=== PATIENT | female | born 1950 | race Caucasian/White ===

== ENCOUNTER 2020-12-26 07:46 | Outpatient (CLI) | payer MEDICARE, OTHER ==
[~2020-12-26] VITALS: Ht 172.7 cm; Wt 81.8 kg
[2020-12-26] MEDS ORDERED: nitroGLYCERIN 0.4mg SUBLingual tab SL PRN (08:50)
[2020-12-26] MEDS ORDERED: regadenoson 0.4mg/5ml syringe IV ONE (08:50)
[2020-12-26] MEDS ORDERED: normal saline 500ml IV soln 500 ML IV ONE (08:50)
[2020-12-26] MEDS ORDERED: aminophylline 250mg/10ml inj. IV PRN (08:50)
[2020-12-26 09:35] VITALS: BP 125/43
[2020-12-26 09:48] VITALS: BP 134/44
[2020-12-26 09:49] VITALS: BP 123/46
[2020-12-26 09:50] VITALS: BP 104/80
[2020-12-26 09:51] VITALS: BP 139/62
[2020-12-26 09:52] VITALS: BP 117/46
== END 2020-12-26 23:59 | disposition home or self-care (01) ==
LOC: RAD 07:46
PROVIDERS: ATTEND Internal Medicine Cardiovascular Disease
DX: Z01.810 Encounter for preprocedural cardiovascular examination (principal); R94.31 Abnormal electrocardiogram [ECG] [EKG]
CPT/HCPCS: 78452; 93017; A9500; J2785; J7040

== ENCOUNTER 2021-06-06 05:20 | Inpatient (IN) | payer MEDICARE, OTHER ==
[2021-05-31 15:04] LABS: BASOPHILS % (AUTO) 0.7 % (0-1); EOSINOPHILS # (AUTO) 0.2 X10'3 (0-0.9); EOSINOPHILS % (AUTO) 3.2 % (0-6); LYMPHOCYTES # (AUTO) 1.6 X10'3 (1.1-4.8); LYMPHOCYTES % (AUTO) 26.6 % (21-51); MEAN CORPUSCULAR HEMOGLOBIN 28.3 PG (27.0-31.0); MEAN CORPUSCULAR HGB CONC 32.7 g/dL (33.0-36.5); MEAN CORPUSCULAR VOLUME 86.6 FL (78-98); MEAN PLATELET VOLUME 8.1 FL (7.4-10.4); MONOCYTES # (AUTO) 0.4 X10'3 (0-0.9); MONOCYTES % (AUTO) 7.4 % (2-12); NEUTROPHILS # (AUTO) 3.7 X10'3 (1.8-7.7); NEUTROPHILS % (AUTO) 62.1 % (42-75); PRE OP HEMATOCRIT 42.1 % (35.0-45.0); PRE OP HEMOGLOBIN 13.8 g/dL (12.0-16.0); PRE OP PLATELET COUNT 185 X10'3 (140-440); RED BLOOD COUNT 4.86 X10'6 (4.20-5.60); RED CELL DISTRIBUTION WIDTH 14.2 % (11.5-14.5)
[2021-05-31 15:18] LABS: ALBUMIN 3.8 G/DL (3.4-5.0); ALBUMIN/GLOBULIN RATIO 1.1 (1.1-1.5); ALKALINE PHOSPHATASE 88 IU/L (46-116); BLOOD UREA NITROGEN 17 MG/DL (7-18); BUN/CREATININE RATIO 17.2 (6.6-38.0); CALCIUM 8.7 MG/DL (8.5-10.1); CHLORIDE 106 MMOL/L (99-107); CREATININE 0.99 MG/DL (0.40-0.90); PRE OP ALT 17 U/L (30-65); PRE OP ANION GAP 10 (8-16); PRE OP AST 17 U/L (10-37); PRE OP BILIRUB, TOTAL 0.4 MG/DL (0.0-1.0); PRE OP GLUCOSE 85 MG/DL (70-104); PRE OP POTASSIUM 3.9 MMOL/L (3.4-5.1); PRE OP SODIUM 145 MMOL/L (135-145); TOTAL PROTEIN 7.2 G/DL (6.4-8.2); eGFR 55 ML/MIN
[~2021-06-06] VITALS: Ht 167.6 cm; Wt 86.0 kg
[2021-06-06] VITALS (21 sets, daily range): BP systolic 109–160; BP diastolic 51–81
[~2021-06-06 05:20] MED LIST: PARO10TA85 PO; ringers solution, lacted 1,000 ML IV SCH
[2021-06-06] MEDS ORDERED: ceFAZolin 2gm in dextrose, iso 50 ML IV ONE (05:30)
[2021-06-06] MEDS ORDERED: vancomycin 1,500 MG in NS 300ml IV soln IV ONE (05:30)
[2021-06-06] MEDS ORDERED: tranexamic acid 650mg tablet PO ONE (05:30)
[2021-06-06] MEDS ORDERED: famotidine 20mg tablet PO ONE (05:30)
[2021-06-06] MEDS ORDERED: ketorolac trometh. 30mg/ml inj. ONE (06:55)
[2021-06-06] MEDS ORDERED: ROPIVAcaine 0.5% (5mg/ml) 30ml vial ONE ×2 (06:55→08:40)
[2021-06-06] MEDS ORDERED: propofol inj 20 ML IV ONE (08:40)
[2021-06-06] MEDS ORDERED: dexamethasone sod phosphate 4mg/ml inj. ONE (08:40)
[2021-06-06] MEDS ORDERED: midazolam 1 mg/ML 2ml injection ONE (08:40)
[2021-06-06] MEDS ORDERED: fentaNYL/PF 50MCG/1 ML 2ML syringe ONE (08:40)
[2021-06-06] MEDS ORDERED: LIDOcaine 2% (20mg/ml) 5ml vial ONE (08:40)
[2021-06-06] MEDS ORDERED: sevoflurane 250ml liquid IH ONE (08:41)
[2021-06-06] MEDS ORDERED: ondansetron/PF 4mg/2ml inj ONE (08:41)
[2021-06-06] MEDS ORDERED: ePHEDrine 50MG/ML INJ. ONE (09:35)
[2021-06-06] MEDS ORDERED: ROPIVAcaine 0.2%/PF PUMP/bolus 545 ML INTERSCALE SCH (10:10)
[2021-06-06] MEDS ORDERED: fentaNYL/PF 50MCG/1 ML 2ML syringe IV PRN ×2 (10:10)
[2021-06-06] MEDS ORDERED: ondansetron/PF 4mg/2ml inj IV PRN ×2 (10:10→10:50)
[2021-06-06] MEDS ORDERED: hydrALAZINE 20mg/ml inj. IV PRN (10:10)
[2021-06-06] MEDS ORDERED: morphine 4 MG/ML inj SYRINge IV PRN (10:10)
[2021-06-06] MEDS ORDERED: enalaprilat dihydrate 2.5mg/2ml vial IV PRN (10:10)
[2021-06-06] MEDS ORDERED: ROPIVAcaine 0.2% (10 MG/5 ML) BOLUS INJECTION INTERSCALE PRN (10:10)
[2021-06-06] MEDS ORDERED: ringers solution, lacted 1,000 ML IV SCH (10:10)
[2021-06-06] MEDS ORDERED: morphine 2 MG/ML inj. syringe IV PRN (10:10)
[2021-06-06] MEDS ORDERED: acetaminophen 325mg tablet PO PRN (10:50)
[2021-06-06] MEDS ORDERED: bisacodyl 10mg suppository rectal RC PRN (10:50)
[2021-06-06] MEDS ORDERED: diphenhydrAMINE 25mg capsule PO PRN ×2 (10:50)
[2021-06-06] MEDS ORDERED: oxyCODONE IR 5mg (immed. release) tablet PO PRN (10:50)
[2021-06-06] MEDS ORDERED: HYDROmorphone inj. 0.5 MG/0.5 ML DISP.SYRIN IV PRN (10:50)
[2021-06-06] MEDS ORDERED: magnesium hydroxide 30ml (MOM) UD suspension PO PRN (10:50)
--- NOTE | 2021-06-06 10:50 | NUR ---
Received from OR via BED, accompanied by Anesthesiologist DR DYER and report given by Anesthesiologist. PATIENT WAKING UP, NO S/S OF PAIN, V/S WNL, SCD ON, PIV 20G TO LUE-LR RUNNING AT 100ML/HR, drsg to shoulder-CDI with WRAP AND POWDER PACK, CSM INTACT, AVLE TO MOVE FINGERS, HAS FEELING BUT NO PAIN, ARM IN SLING.
--- NOTE | 2021-06-06 12:30 | NUR ---
PT AWAKE, VSS, ON 2 LTRS O2, DENIES PAIN, R SHOULDER IN SLING, WRAP IN PLACE WITH ICE PACK, FINGERS STILL NUMB BUT ABLE TO MOVE THEM, CSM INTACT, +CAP REFILL, ON-Q PUMP ATTACHED AND RUNNING AT 2ML/HR-PT AND RN EDUCATED REGARDING CARE OF ON-Q, PAMPHLETS GIVEN WELL, SCDS ON, PIV 20G TO LEFT HAND-LR RUNNING 100ML/HR, REPORT CALLED TO RN LON-ALL QUESTIONS ANSWERED, PATIENT TAKEN TO ROOM WITH ALL BELONGINGS AND HOOKED UP TO MONITORS IN ROOM AND GIVEN CALL LIGHT, REPORT GIVEN TO RN WHO HAS TAKEN OVER PATIENT CARE
[2021-06-06] MEDS: potassium cl 20mEq in 1/2 NS 1,000 ML IV SCH ×2 (12:35→20:38)
--- NOTE | 2021-06-06 12:35 | NUR ---
Patient arrived to unit at 1235 with an hospital bed. Surgical wound to right shoulder is covered with a border gauze, DRI. no drainage noted at this time.Right arm in a sling with ice for pain. patient also have ON-Q pain meds system set at 2ml/hr, patient can go up to 14mllhr and can give self a 5ml bolus q30min. Patient has LR running ar 100ml/hr on IV to left hand. Patien ton 2l O2. Patient was oriented to room, call light within reach, lunch offered to patient.
[2021-06-06] MEDS: acetaminophen 325mg tablet PO SCH ×2 (14:55→20:35)
[2021-06-06] MEDS: ceFAZolin/D5W- 1GM premix 50 ML IV SCH ×2 (16:45→23:54)
--- NOTE | 2021-06-06 17:00 | NUR ---
Patient reassess for pain, patient denies any pain at this time. She stated that she does not feel any pain.
--- NOTE | 2021-06-06 18:30 | NUR ---
Patient in room COLT 347. I have received report from VINH Cage and had the opportunity to ask questions and assume patient care. Addendum: 06/06/21 at 1938 by Shamir Reyna RN Amended: Links added.
--- NOTE | 2021-06-06 18:30 | NUR ---
numbness to figners is decreasing has more sensation. 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 Addendum: 06/06/21 at 1933 by Shamir Reyna RN Amended: Links added.
[2021-06-06] MEDS ORDERED: vancomycin/NS 1 GM ADD-VANTAGE 250 ML IV SCH (20:00)
[2021-06-06] MEDS: gabapentin 300mg capsule PO SCH (20:36)
[2021-06-06] MEDS: oxyCODONE IR 5mg (immed. release) tablet PO PRN (20:42)
[2021-06-06] MEDS ORDERED: sennosides 8.6mg tablet PO SCH (21:00)
[2021-06-06] MEDS ORDERED: ROPINIRole 0.25mg tablet PO PRN (21:25)
[2021-06-07] MEDS: HYDROmorphone 1 mg/ml syringe IV PRN ×3 (00:01→08:22)
[2021-06-07] MEDS: acetaminophen 325mg tablet PO SCH ×2 (02:30→08:21)
[2021-06-07] MEDS: oxyCODONE IR 5mg (immed. release) tablet PO PRN ×3 (02:30→13:06)
[2021-06-07] MEDS: potassium cl 20mEq in 1/2 NS 1,000 ML IV SCH ×2 (02:50→05:52)
[2021-06-07 04:45] VITALS: BP 134/55
--- NOTE | 2021-06-07 06:00 | NUR ---
csm to fingers on right hand wnl, memory care program resident strong and numbness is gone. Addendum: 06/07/21 at 0613 by Shamir Reyna RN Amended: Links added.
[2021-06-07 06:23] LABS: BASOPHILS % (AUTO) 0.4 % (0-1); EOSINOPHILS % (AUTO) 0.1 % (0-6); HEMATOCRIT 32.1 % (35.0-45.0); LYMPHOCYTES # (AUTO) 1.4 X10'3 (1.1-4.8); LYMPHOCYTES % (AUTO) 18.9 % (21-51); MEAN CORPUSCULAR HEMOGLOBIN 29.3 PG (27.0-31.0); MEAN CORPUSCULAR HGB CONC 34.2 g/dL (33.0-36.5); MEAN CORPUSCULAR VOLUME 85.8 FL (78-98); MEAN PLATELET VOLUME 8.9 FL (7.4-10.4); MONOCYTES # (AUTO) 0.7 X10'3 (0-0.9); MONOCYTES % (AUTO) 9.3 % (2-12); NEUTROPHILS # (AUTO) 5.2 X10'3 (1.8-7.7); NEUTROPHILS % (AUTO) 71.3 % (42-75); PLATELET COUNT 144 X10'3 (140-440); RED BLOOD COUNT 3.74 X10'6 (4.20-5.60); RED CELL DISTRIBUTION WIDTH 14.3 % (11.5-14.5); WHITE BLOOD COUNT 7.3 X10'3 (4.5-11.0)
[2021-06-07 06:27] LABS: ANION GAP 9 (8-16); CHLORIDE 106 MMOL/L (99-107); POTASSIUM 4.6 MMOL/L (3.5-5.1); SODIUM 139 MMOL/L (135-145); TOTAL CARBON DIOXIDE 24.4 MMOL/L (24-32)
--- NOTE | 2021-06-07 06:39 | NUR ---
Problems reprioritized. Patient report given, questions answered & plan of care reviewed with VINH Cage. Addendum: 06/07/21 at 0639 by Shamir Reyna RN Amended: Links added.
[2021-06-07 08:00] VITALS: BP 142/58
[2021-06-07] MEDS: gabapentin 300mg capsule PO SCH ×2 (08:22→13:06)
[2021-06-07] MEDS ORDERED: aspirin 325mg tablet PO SCH (08:30)
--- NOTE | 2021-06-07 09:00 | NUR ---
Patient stated that she is allergic to Percodan (Oxycodone and aspirin), but can she can take oxycodone and aspirin separately without any allergic reaction. Patient had oxycodone at 0655, and due for aspirin at 0830. I called pharmacist, stated that it is ok to given the aspirin.
[2021-06-07 11:00] VITALS: BP 138/47
--- NOTE | 2021-06-07 11:01 | NUR ---
Dr Salazar phoned and stated he will round later in the afternoon, but if pt remains stable then she may leave before he arrives, if she prefers. VINH Cage notified.
--- NOTE | 2021-06-07 12:20 | NUR ---
Primary Joint consult: Pt admitted s/p reverse arthroplasty of R shoulder per EMR. Provided pt w/ written and verbal high protein diet education. Pt receptive of education. Will continue to monitor. Addendum: 06/07/21 at [address] Amended: Links added.
--- NOTE | 2021-06-07 14:30 | NUR ---
Patient discharge per Dr Brown order. IV taken out of patient, all personal item given to patient. Discharge instruction given to patient to include instruction on onQ pain pump. Patient left unit at 1415 in a wheel chair to a private care with her daughter.
[2021-06-07] MEDS ORDERED: celeCOXIB 100mg capsule PO SCH (20:00)
[2021-06-08] MEDS ORDERED: acetaminophen 325mg tablet PO PRN (10:50)
== END 2021-06-07 14:10 | disposition home or self-care (01) | DRG 483 ==
LOC: UNDOADMIN 05:20 → PAS IN 05:20 → SUR 3N 12:40
PROVIDERS: ADMIT Orthopaedic Surgery; ATTEND Orthopaedic Surgery
PROC: 0LS30ZZ Reposition Right Upper Arm Tendon, Open Approach (ICD-10-PCS; 2021-06-06)
PROC: 3E0T3BZ Introduction of Anesthetic Agent into Peripheral Nerves and Plexi, Percutaneous Approach (ICD-10-PCS; 2021-06-06)
PROC: 3E0T33Z Introduction of Anti-inflammatory into Peripheral Nerves and Plexi, Percutaneous Approach (ICD-10-PCS; 2021-06-06)
PROC: 0RRJ00Z Replacement of Right Shoulder Joint with Reverse Ball and Socket Synthetic Substitute, Open Approach (ICD-10-PCS; principal; 2021-06-06 08:41)
DX: M19.011 Primary osteoarthritis, right shoulder (principal); M75.121 Complete rotator cuff tear or rupture of right shoulder, not specified as traumatic; J44.9 Chronic obstructive pulmonary disease, unspecified; I10 Essential (primary) hypertension; G47.30 Sleep apnea, unspecified; F41.9 Anxiety disorder, unspecified; F32.A Depression, unspecified; Z88.2 Allergy status to sulfonamides; Z88.8 Allergy status to other drugs, medicaments and biological substances; Z90.49 Acquired absence of other specified parts of digestive tract; Z98.891 History of uterine scar from previous surgery; Z90.710 Acquired absence of both cervix and uterus
CPT/HCPCS: 36415; 73030; 80051; 80053; 82948; 85025; 87081; 93005; 97161; 97530; A4565; A4618; A7000; C1776; G0378; J0690; J1100; J1170; J1885; J2001; J2250; J2405; J2704; J2795; J3010; J3370; J3480; J7040; J7120; U0003; U0005